=== PATIENT | male | born 1955 | race Caucasian/White ===

== ENCOUNTER → 2016-09-13 | Outpatient (CLI) | payer MEDICARE, OTHER | END | disposition home or self-care (01) | LOC: PCVCIMAG 09:37 | PROVIDERS: ATTEND Internal Medicine Cardiovascular Disease | DX: I65.23 Occlusion and stenosis of bilateral carotid arteries (principal); R09.89 Other specified symptoms and signs involving the circulatory and respiratory systems; I25.5 Ischemic cardiomyopathy; I25.10 Atherosclerotic heart disease of native coronary artery without angina pectoris; Z95.5 Presence of coronary angioplasty implant and graft | CPT/HCPCS: 93325; 93351; 93880 ==

== ENCOUNTER → 2017-05-15 | Outpatient (CLI) | payer MEDICARE, OTHER | END | disposition home or self-care (01) | LOC: PCVCCLINIC 09:59 | PROVIDERS: ATTEND Internal Medicine Cardiovascular Disease | DX: I25.10 Atherosclerotic heart disease of native coronary artery without angina pectoris (principal); I10 Essential (primary) hypertension; E78.00 Pure hypercholesterolemia, unspecified; G47.30 Sleep apnea, unspecified; R00.2 Palpitations; R53.83 Other fatigue; R94.31 Abnormal electrocardiogram [ECG] [EKG]; I45.10 Unspecified right bundle-branch block; Z79.899 Other long term (current) drug therapy; Z79.82 Long term (current) use of aspirin | CPT/HCPCS: 80061; 93005; G0463 ==

== ENCOUNTER → 2018-01-26 | Outpatient (CLI) | payer MEDICARE, OTHER | END | disposition home or self-care (01) | LOC: PCVCCLINIC 11:17 | DX: I25.10 Atherosclerotic heart disease of native coronary artery without angina pectoris (principal); G47.30 Sleep apnea, unspecified; I10 Essential (primary) hypertension; E78.00 Pure hypercholesterolemia, unspecified; Z79.82 Long term (current) use of aspirin; Z79.899 Other long term (current) drug therapy | CPT/HCPCS: 80061; 93005; G0463 ==

== ENCOUNTER → 2018-05-22 | Outpatient (CLI) | payer MEDICARE, OTHER ==
--- NOTE | 2018-05-25 17:58 | PCVCIMAG ---
APPROVED REPORT Study performed: 05/22/2018 11:07:53 Exam: Stress Echocardiogram Indication: CAD s/p MS, CAD s/p PCI, ischemic cardiomyopathy- anterior apical infarct, HTN Patient Location: Echo lab Stress Nurse: Camille Graham RN Status: routine Ht: 5 ft 10 in HR: 83 bpm BP: 142/86 mmHg Rhythm: NSR Procedure The patient underwent an Exercise Stress Test using the Az Protocol. Blood pressure, heart rate, and EKG were monitored. An Echocardiogram was performed by facilities operations technician in four stages in quad fashion. At peak stress, four selected images were obtained and placed side by side with resting images for comparison. Stress Test Details Stress Test: Exercise stress testing was performed using a Az protocol. HR Resting HR: 83 bpmMax Heart Rate (APMHR): 159 bpm Max HR Achieved: 150 bpmTarget HR (85% APMHR): 135 bpm % of APMHR: 94 Recovery HR: 96 bpm HR response to stress: Normal HR response to stress BP Resting BP: 142/86 mmHg Max BP: 172/86 mmHg Recovery BP: 146/82 mmHg ECG Resting ECG: Sinus Rhythm, incomplete RBBB Stress ECG: Sinus Rhythm ST Change: Normal Arrhythmia: rare isolated PVCs Recovery ECG: Sinus Rhythm Recovery ST Change: Normal Recovery Arrhythmia: rare PVCs Clinical Reason for Termination: Maximal effort, Dyspnea Stress Symptoms: Dyspnea Exercise duration: 6 min 42 sec Highest Stage Achieved: Stage 3: 3.4 mph at 14% grade. Exercise capacity: 9.1 METs Overall Exercise Capacity for Age: Average Scale: Sedentary Angina Score: None Pre-Stress Echo The resting Echocardiogram showed normal left ventricular contractility with an estimated Ejection Fraction of about 45%. Fixed anteroapical akinesis due to old MS. Post-Stress Echo The stress Echocardiogram showed normal left ventricular contractility with an estimated Ejection Fraction of about 50-55%. Fixed anteroapical akinesis. Normal augmentation of wall motion in all other segments on post stress images. Clinical No clinical or ECG evidence for ischemia. Conclusion Clinical Response: Non-ischemic Exercise Capacity: Average Stress ECG Response: Non-ischemic Stress Echo Images: Non-ischemic The left ventricle is normal in size and wall thickness in both the rest and stress images. Suggest myocardial perfusion imaging for increased accuracy to due difficulty in imaging. Other Information Study Quality: Technically Limited Technically limited study due to body habitus. <Conclusion> The left ventricle is normal in size and wall thickness in both the rest and stress images. Suggest myocardial perfusion imaging for increased accuracy to due difficulty in imaging.
== END | disposition home or self-care (01) ==
LOC: PCVCIMAG 10:40
PROVIDERS: ATTEND Internal Medicine Cardiovascular Disease
DX: I25.10 Atherosclerotic heart disease of native coronary artery without angina pectoris (principal); I10 Essential (primary) hypertension; R53.83 Other fatigue; E78.5 Hyperlipidemia, unspecified; I25.5 Ischemic cardiomyopathy; E78.00 Pure hypercholesterolemia, unspecified
CPT/HCPCS: 93325; 93351

== ENCOUNTER → 2019-02-01 | Outpatient (CLI) | payer MEDICARE, OTHER | END | disposition home or self-care (01) | LOC: PCVCCLINIC 11:10 | PROVIDERS: ATTEND Internal Medicine Cardiovascular Disease | DX: I25.10 Atherosclerotic heart disease of native coronary artery without angina pectoris (principal); I10 Essential (primary) hypertension; I25.5 Ischemic cardiomyopathy; R07.89 Other chest pain; E78.00 Pure hypercholesterolemia, unspecified; Z72.89 Other problems related to lifestyle; Z79.82 Long term (current) use of aspirin; Z79.899 Other long term (current) drug therapy | CPT/HCPCS: 36415; 80061; 93005; G0463 ==

== ENCOUNTER → 2019-05-27 | Outpatient (CLI) | payer MEDICARE, OTHER ==
--- NOTE | 2019-05-27 15:22 | PCVCIMAG ---
APPROVED REPORT Study performed: 05/27/2019 12:54:31 Exam: Stress Echocardiogram Indication: CAD, Chest Tightness, Chest Pain, Ischemic Cardiomyopathy Patient Location: Echo lab Stress Nurse: Anne Addison RN Room #: 1 Status: routine Ht: 5 ft 10 in HR: 77 bpm BP: 134/82 mmHg Rhythm: NSR Medical History Medical History: HTN, Hyperlipidemia Procedure The patient underwent an Exercise Stress Test using the Az Protocol. Blood pressure, heart rate, and EKG were monitored. An Echocardiogram was performed by biofuels production technician in four stages in quad fashion. At peak stress, four selected images were obtained and placed side by side with resting images for comparison. Stress Test Details Stress Test: Exercise stress testing was performed using a Az protocol. HR Resting HR: 77 bpmMax Heart Rate (APMHR): 158 bpm Max HR Achieved: 148 bpmTarget HR (85% APMHR): 134 bpm % of APMHR: 93 Recovery HR: 98 bpm HR response to stress: Normal HR response to stress BP Resting BP: 134/82 mmHg Max BP: 168/82 mmHg Recovery BP: 142/80 mmHg BP response to stress: Normal blood pressure response to stress. ECG Resting ECG: Sinus Rhythm Stress ECG: Sinus Rhythm Recovery ECG: Sinus Rhythm Clinical Reason for Termination: Maximal effort, Dyspnea Exercise duration: 6 min 00 sec Highest Stage Achieved: Stage 2: 2.5 mph at 12% grade. Exercise capacity: 7.00 METs Overall Exercise Capacity for Age: Average Stress ECG Conclusion ECG: Non-ischemic Clinical: Non-ischemic Pre-Stress Echo The resting Echocardiogram showed abnormal left ventricular contractility with an estimated Ejection Fraction of about 45-50%. Anteroseptal akinesis and inferior/inferoapical hypokinesis. Post-Stress Echo The stress Echocardiogram showed abnormal left ventricular contractility with an estimated Ejection Fraction of about 50-55%. Anteroseptal akinesis and inferior/inferoapical hypokinesis remains. No new regional wall motion abnormalities. Clinical No clinical or ECG evidence for ischemia. Trace to mild mitral regurgitation by doppler. No regurgitation or stenosis of tricuspid, aortic, and pulmonic valves. Conclusion Clinical Response: Non-ischemic Exercise Capacity: Average Stress ECG Response: Non-ischemic Stress Echo Images: Non-ischemic Normal stress echocardiogram with maximal exercise stress. Other Information Study Quality: Fair Technically limited study due to body habitus. <Conclusion> Normal stress echocardiogram with maximal exercise stress.
== END | disposition home or self-care (01) ==
LOC: PCVCIMAG 12:40
PROVIDERS: ATTEND Internal Medicine Cardiovascular Disease
DX: I25.10 Atherosclerotic heart disease of native coronary artery without angina pectoris (principal); I10 Essential (primary) hypertension; I25.5 Ischemic cardiomyopathy; E78.5 Hyperlipidemia, unspecified; E78.00 Pure hypercholesterolemia, unspecified; G47.30 Sleep apnea, unspecified; Z95.818 Presence of other cardiac implants and grafts; Z72.89 Other problems related to lifestyle
CPT/HCPCS: 93325; 93351